=== PATIENT | male | born 1975 | race Caucasian/White ===

== ENCOUNTER 2023-04-24 06:14 | Day surgery (SDC) | payer OTHER, SELFPAY ==
[2023-04-11 11:57] VITALS: BMI 40.7
[2023-04-24] VITALS (26 sets, daily range): BP systolic 143–218; BP diastolic 70–121; PULSE 79–102; RESP 9–24; TEMP 36.3–36.9; O2SAT 92–100; BMI 40.7
[2023-04-24] MEDS: VANCOMYCIN 1,000 MG/200 ML PIGGYBACK 200 MG IV (06:50)
[2023-04-24] MEDS: PREGABALIN 75 MG CAPSULE PO ×2 (07:00→07:08)
[2023-04-24] MEDS: CELECOXIB 200 MG CAPSULE PO (07:09)
--- NOTE | 2023-04-24 07:42 | PM.PREOP ---
Pre-operative Note Interval Note History & Physical reviewed/Exam performed by Physician: Yes Changes to H&P: No
--- NOTE | 2023-04-24 07:42 | PM.OP.1 ---
Operative Date/Time/Diagnoses Date of procedure: 04/24/23 Time of procedure: 07:40 Pre-op diagnosis: Severe right hip OA Post-op diagnosis: same Procedure & Clinicians Procedure: Right total hip arthroplasty posterior approach Same procedure as scheduled: Yes Indications: The patient has had progressively worsening right hip pain with radiographic changes consistent with arthritis. Non-operative management has failed and the patient has requested total hip replacement. The risks, benefits and alternatives to surgery were discussed with the patient prior to proceeding. Risks discussed included, but were not limited to, failure to relieve pain, leg length discrepancy, dislocation, stiffness, infection, nerve damage, deep venous thrombosis, pulmonary embolism, stroke, coma, heart attack, permanent paralysis and , as well as the potential need for eventual revision of the prosthetic. Surgeon: Leia De La Rosa Telemarketing Representative: Hamida Gilbert Anesthesia Type: General and Spinal Operative Notes Findings: Severe right hip osteoarthritis Closure Type: primary Specimen(s): none sent Prosthetic devices, grafts, tissues, transplants, or devices: De La Rosa and nephew anthology a size 8. 54 mm R3 cup, neutral poly liner,-3 x 36 Oxinium head,one 6.5 mm screw Estimated Blood Loss (mL): 250 Blood products transfused: none Procedure in detail: The patient was seen in the pre-operative area, where the patient identified the right hip as the operative site and this was marked with my initials. The patient received pre-operative antibiotics and was taken to the operating room and placed on the operative table in the left lateral decubitus position after satisfactory anesthesia. A content specialist out was performed. The right leg was prepared from the ankle to the iliac crest with ChloroPrep in the usual fashion and draped through sterile drapes. The hip was approached through an approximately 20 cm incision centered over the greater trochanter and curving gently posteriorly as it went proximally. This was carried sharply to the fascia sandra, which was divided and retracted with a self retaining retractor. The trochanteric bursa was excised with care being taken to avoid the sciatic nerve, which was identified and protected throughout the case. The short external rotators were incised and the capsulomuscular flap was raised and tagged for later repair. The hip was dislocated, and a femoral neck osteotomy performed approximately 15 mm above the lesser trochanter. Retractors were placed around the femur. The canal was opened with a box cutting osteotome, followed by a T handled reamer and a lateralizing reamer. The chili pepper broach was then used, followed by sequential broaching until there was good stability of the broach in the femur. Retractors were placed to expose the acetabulum. The labrum and central soft tissues were removed. Reaming was performed initially going up in 2 mm increments, then 1 mm increments until good bite was obtained with an odd sized reamer. The cup 1 mm larger than the last reamer was then inserted using the appropriate anteversion guides. It was further stabilized with a single screw. A trial neutral liner was placed. The broach was placed in the canal. A trial head and neck were then placed and the hip relocated and checked for leg length and stability. He had a very tight hip overall. We meticulously mobilized his femur in order to allow adequate positioning of the cup and femoral component. A PA was essential throughout the procedure for intraoperative positioning of the patient leg, hemostasis, and adequate retraction. An intraoperative film confirmed the component position and no evidence of fracture. The patient was stable in the position of sleep, of squatting, and could be put through a range of motion with 45 degrees internal rotation without dislocation. At 90 degrees flexion, internal rotation to 70 was possible before dislocation. This was felt to be satisfactory and the appropriate components were opened, and the trials were removed. The acetabular liner was impacted into position. The final stem was then impacted into the prepared femoral canal. A brief Betadine soak was performed while trialing with head options. The hip was meticulously irrigated with normal saline. Finally the femoral head was impacted onto the stem. The acetabulum was cleared of all material and the hip relocated one final time. The capsulomuscular flap was then repaired to the greater trochanter though an awl hole using the tag sutures. The short external rotators were repaired with a nonabsorbable suture. A deep drain was placed and brought out anteriorly. The fascia sandra was closed with Vicryl. The subcutaneous layer was closed with barbed sutures and SteriStrips. An Aquacel Ag dressing was applied and the patient was taken to recovery having tolerated the procedure well. Complications: none Post-operative Condition: stable Disposition: Acute Care Plan for aftercare: The patient will be maintained on a standard total hip replacement protocol with weight bearing as tolerated and posterior hip precautions. The patient will receive Aspirin and sequential compression devices for DVT prophylaxis. The patient will be discharged home when safe for the home environment.
--- NOTE | 2023-04-24 08:00 | DI.RAD.S_ITS ---
PROCEDURE: XR PELVIS 1-2V INDICATIONS: INNER OP TECHNIQUE: 1 view of the lower pelvis acquired. COMPARISON: [facility], CR, XR HIP W PEL IF DONE RT 2V, 04/24/2023, 11:15. FINDINGS AND IMPRESSION: Surgical changes of right hip arthroplasty. No unexpected findings. Please see operative note for full details. Dictated by: Long Carbajal M.D. on 04/24/2023 at 14:57 Approved by: Long Carbajal M.D. on 04/24/2023 at 14:58
[2023-04-24] MEDS: CEFAZOLIN 2 GM/100 ML PREMIX 100 ML IV (08:12)
[2023-04-24] MEDS: TRANEXAMIC ACID 1,000 MG VIAL 2000 MG INJ ×2 (08:15→10:28)
--- NOTE | 2023-04-24 08:44 | SUR.OPER ---
Lateral supported by hip clinical nurse specialist system, head on pillow, gel axillary roll in place, bottom leg bent with gel pad under knee to foot and secured with tape. Upper arm supported by pillows and secured over bottom arm to padded arm board. Additional gelpad padding groin
[2023-04-24] MEDS: BUPIVACAINE 0.25% (PF) 60 ML, EPINEPHrine 0.3 MG INJ (08:49)
[2023-04-24] MEDS: BUPIVACAINE LIPOSOME 266 MG/20 ML VIAL INJ (08:51)
[2023-04-24] MEDS: EPINEPHrine 1 MG/ML TOP (08:53)
[2023-04-24] MEDS: LACTATED RINGERS 1,000 ML 42 ML IV ×2 (09:00→10:02)
--- NOTE | 2023-04-24 11:00 | DI.RAD.S_ITS ---
PROCEDURE: XR HIP W PEL IF DONE RT 2V INDICATIONS: POST OP TOTAL HIP TECHNIQUE: AP pelvis and lateral view of the right hip acquired. COMPARISON: [facility], CR, XR PELVIS WITH LATERAL HIP RIGHT, 02/07/2023, 8:56. [facility], CR, XR PELVIS 1-2V, 04/24/2023, 9:30. FINDINGS: Bones: Patient is status post right hip arthroplasty, with hardware components in expected positions. The hip joint appears congruent. The visualized bony structures appear intact. Soft tissues: Overlying postoperative changes are noted. No suspicious soft tissue densities. IMPRESSION: Postoperative changes from right hip arthroplasty. No definite unexpected findings. Dictated by: Romario Miguel M.D. on 04/24/2023 at 13:03 Approved by: Romario Miguel M.D. on 04/24/2023 at 13:06
[2023-04-24] MEDS: LABETALOL 20 MG/4 ML SYRINGE 10 MG IV (11:56)
[2023-04-24] MEDS: ACETAMINOPHEN 325 MG TABLET 650 MG PO (13:09)
[2023-04-24] MEDS: IBUPROFEN 400 MG TABLET PO (13:09)
[2023-04-24] MEDS: LACTATED RINGERS 1,000 ML 100 ML IV (13:10)
[2023-04-24] MEDS: OXYCODONE IR 10 MG TABLET PO (13:14)
--- NOTE | 2023-04-24 16:00 | OT.IP.TRT ---
Current Diagnoses Unilateral primary osteoarthritis, right hip (04/24/23) Surgery Performed Operation Date: 04/24/23 07:45 Actual Procedures p Total Hip Arthroplasty(Right) - Leia De La Rosa MD Occupational Therapy Treatment Note M2 OT-IP Current Condition Start: 04/24/23 16:00 Freq: Status: Active Protocol: Document 04/24/23 16:00 [facility] (Rec: 04/24/23 16:27 [facility] [id number]) Occupational Therapy Current Condition Current Condition Treatment Diagnosis R SONIA Diagnosis Onset Date 04/24/23 Post Operative Precautions Posterior Hip Precautions No Hip Flexion > 90 degrees,No Hip Internal Rotation,No Hip Adduction Weight Bearing Status Weight Bearing Status Weight Bear as Tolerated M3 OT- IP Subjective and Pain Start: 04/24/23 16:00 Freq: Status: Active Protocol: Document 04/24/23 16:00 [facility] (Rec: 04/24/23 16:27 [facility] [id number]) OT- Subjective Occupational Therapy Visit Type Type Treatment Note Visit Start Time 15:26 Visit Stop Time 16:00 Total Visit Minutes 34 Occupational Therapy Visit Comments Patient Comments Pt agreed to get up and wanting to go home. Pt's present for Ot treatment . Patient/Caregiver Goals To go home. OT Pain Assessment Pain When Pain Assessed At Rest Pain Present Pain Present Pain Reported Location Right Hip Intensity 1 Scale Used Numeric (0 - 10) M4 OT- IP ADL's Start: 04/24/23 16:00 Freq: Status: Active Protocol: Document 04/24/23 16:00 [facility] (Rec: 04/24/23 16:27 [facility] [id number]) OT [id number] Comments OT Self-Feeding Comments Not at meal time, no issued anticipated. OT ADL-Grooming Comments OT Grooming Comments Not performed. OT ADL-Oral Care Comments Oral Care Comments Not performed. OT ADL-Dressing General Eval Lower Body Dressing Ability Maximum Assistance Areas Needing Assistance Pants/Shorts,Socks,Shoes Comments OT Dressing Comments Pt's able to assist pt for all LB dressing needs and will be doing so at home. OT ADL-Toileting Comments OT Toileting Comments Pt already able to use the urinal. Educated to be careful while wiping and that standing up would be better at this time in order to follow his hip precautions. Pt states his to asisst and also suggested wet wipe can be helpful or just to shower off. OT ADL-Bathing Comments OT Bathing Comments Spoke of possible tub bench versus shower chairs pending how pt does and moves. Otherwise pt can just sponge off for now until he is able to do the steps at home. Once again, pt's states to be assist the pt. M5 OT- IP IADL's Start: 04/24/23 16:00 Freq: Status: Active Protocol: Document 04/24/23 16:00 [facility] (Rec: 04/24/23 16:27 [facility] [id number]) OT-Instrumental Activities of Daily Living Deficits IADL Deficits Identified Deficits Home Safety Awareness Awareness of Need for Assistance at Home Good Awareness Ability to Problem Solve Emergency Able to Problem Solve Situations M6 OT- IP Functional Cognition Start: 04/24/23 16:00 Freq: Status: Active Protocol: Document 04/24/23 16:00 [facility] (Rec: 04/24/23 16:27 [facility] [id number]) Cognitive Factors Limiting Selfcare Function Cognitive Ability Level of Alertness Alert Patient Orientation Name,Place,Situation Attention Span Ability Capable of Focused Attention, Capable of Sustained Attention Ability to Follow Commands Able to Follow One Step Commands Cognitive Comments Cognitive Assessment Comments Pt able to follow commands for his hip precautions for ADl and mobility needs after initial education. M7 OT- IP Mobility and Balance Start: 04/24/23 16:00 Freq: Status: Active Protocol: Document 04/24/23 16:00 [facility] (Rec: 04/24/23 16:27 [facility] [id number]) OT- Bed Mobility Assessment Supine to Sit Supine to Sit Assist Standby Assistance OT-Transfer Assessment Sit to and From Stand Sit to and from Stand Standby Assistance Comments Mobility Comments Pt able to get out of bed with SBA and stand to the FWW with SBA. Initially supine 174/99 , sitting 173/101 and 177/103 after standing 181/115 and feeling sweaty. Pt's nurse came in to recheck pt's BP on the left arm and 166/98. Educated pt to push up from surfaces sitting on and to slide his RLE forwards prior to standing and sitting to ensure not to bend greater than 90 degrees. OT- Balance Assessment Sitting Balance and Reactions Static Sitting Balance Ability Normal Dynamic Sitting Balance Ability Good Standing Balance and Reactions Static Standing Balance Ability Good M9 OT- IP Assessment and Plan Start: 05/24/23 16:00 Freq: Status: Active Protocol: Document 04/24/23 16:00 [facility] (Rec: 04/24/23 16:27 [facility] [id number]) OT Summary Assessment and Plan Potential Rehabilitation Potential Good Analytic Complexity at Evaluation Low Summary OT Impairments Pain,Balance,Functional Mobility,Dressing,Toileting, Bathing,Toilet Transfers, Shower Transfers Progress Towards Goals Progressing Toward Goals Assessment Summary Pt just seen for OT treatment and able to talk about OT needs of equipment, techniques for dressing, toileting and bathing needs. Pt has very supportive and kids that will assist pt for all his needs and therefore not wanting to get any LB dressing equipment. Pt's was able to order a FWW for the pt as he has a borrowed standard FWW now. Discharge Recommendations OT Discharge Recommendations Home with Assistance Home Equipment Needs FWW, shower chair? Transportation Needs at Discharge Private Vehicle
--- NOTE | 2023-04-24 16:43 | PT.IIE ---
Current Diagnoses Unilateral primary osteoarthritis, right hip (04/24/23) Surgery Performed Operation Date: 04/24/23 07:45 Actual Procedures p Total Hip Arthroplasty(Right) - Leia De La Rosa MD Surgical History (Last Updated 04/11/23 @ 13:10 by Kiah Cantrell, RN) History of cardiac cath (12/26/22) Hx of bariatric surgery (2019) Hx of tonsillectomy Medical History (Last Updated 04/11/23 @ 13:07 by Kiah Cantrell RN) Heart failure History of COVID-19 (10/2022) HTN (hypertension) Osteoarthritis Physical Therapy Inpatient Evaluation/Re-Eval M1 PT/OT-IP Prior Functional Status Start: 04/24/23 14:10 Freq: NEEDED Status: Active Protocol: Document 04/24/23 16:20 [facility] (Rec: 04/24/23 16:22 ES [id number]) Medical Review Prior Functional Status Medical History Reviewed Yes Diet/Fluid Consistency Regular Communication Indep Mobility and Gait Indep without AD Activities of Daily Living and IADL's Indep Social History Household Members spouse,children Living Arrangements House Number of Floors (Floors) Two Floors Number of Stairs To Enter/Railing? 2 steps onto porch with single concrete ledge on R side ascending. 12 steps up to second level with single rail and ledge on other side. Home Environment Standard Height Toilet,Tub/ Shower Employment Status Occasional Caregiver Employed Additional Social History Comment Patient has a walker without wheels; purchased a FWW during session to be delivered on Saturday. Will have 5 kids of various ages around to help with household tasks. M2 PT-IP Current Condition Start: 04/24/23 14:10 Freq: NEEDED Status: Active Protocol: Document 04/24/23 16:20 ES (Rec: 04/24/23 16:41 ES [id number]) Physical Therapy Current Condition Current Condition Evaluation Date 04/24/23 Treatment Diagnosis S/p R SONIA Onset Date 04/24/23 M3 PT-IP Subjective Start: 04/24/23 14:10 Freq: NEEDED Status: Active Protocol: Document 04/24/23 16:20 [facility] (Rec: 04/24/23 16:41 ES [id number]) Subjective Physical Therapy Visit Type Type Initial Evaluation Visit Start Time 15:26 Visit Stop Time 16:14 Total Visit Minutes 48 Notes OT present Physical Therapy Visit Comments Patient Comments Patient alert in bed, anxious to work with PT and get home as soon as possible. present. Patient reported he hasn't taken his usual BP meds today because of having surgery. Has a BP cuff at home , usually is in the 140's/80/s . Patient Goals To go home DWIGHT. Therapy Pain Assessment Pain When Pain Assessed During Mobility Pain Present Pain Present Pain Reported Location Right Hip Intensity 1 Scale Used Numeric (0 - 10) M4 PT-IP Mobility and Gait Start: 04/24/23 14:10 Freq: NEEDED Status: Active Protocol: Document 04/24/23 16:20 ES (Rec: 04/24/23 16:41 ES [id number]) PT-Bed Mobility Assessment Supine to Sit Supine to Sit Standby Assistance Sit to Supine Sit to Supine Independent Scooting Scooting to Edge of Bed Independent Scooting Up and Down in Bed Independent PT-Transfer Assessment Sit to and From Stand Sit to and from Stand Independent,Use of Upper Extremities Equipment Transfer Assistive Device Front Wheeled Walker Orthotic/Prosthetic Devices or Brace: No Transfers Transfer Destination Bed Transfer Technique Ambulation Transfer Ability Level of Assist Standby Assistance,Use of Upper Extremities Comments Mobility Comments BP was monitored throughout visit; see vital sign flowsheet in chart for details . Instructed patient to place R foot forward during STS to comply with precautions. Cued for hand placement for safety. Gait Assessment Gait Gait Assistance Required: Independent Distance (Feet) 100 Able to Maintain Weight Bearing Status Yes During Gait Assistive Devices Assistive Device Gait Belt,Front Wheeled Walker Orthotic/Prosthetic Devices or Brace: No Gait Deviations General Gait Pattern Antalgic,Step-to Gait Factors Limiting Gait Function Factors Limiting Gait Function Decreased Strength,Pain Comments Gait Comments Education on progression to step-through as able at home. Instructed patient to push vs lift FWW. Stair Climbing Assessment Evaluation Level of Assist On Stairs Standby Assistance Devices Stair Climbing Assistive Devices Left Railing Technique/Endurance Stair Climbing Direction Ascend and Descend Stair Climbing Technique Step to Step Number of Steps Climbed 3 Query Text: Stair Climbing Set # Repetitions (reps) 1 Comments Stair Climbing Comments Patient used preferred method of ascending and descending facing up the stairs. No cues needed for sequencing. Instructed in HAND BRAILLE TRANSCRIBER technique to use as needed since they have a single rail. PT-Balance Assessment Sitting Balance and Reactions Static Sitting Balance Ability Good Dynamic Sitting Balance Ability Good Standing Balance and Reactions Static Standing Balance Ability Good Dynamic Standing Balance Ability Good Device Used FWW M5 PT-IP Objective Assessments Start: 04/24/23 14:10 Freq: NEEDED Status: Active Protocol: Document 04/24/23 16:20 ES (Rec: 04/24/23 16:41 ES [id number]) Orientation Orientation/Cognition Level of Alertness Alert Orientation Name,Age,Birthday,Month,Date, Year,Day of Week,Place, Situation Language Function Ability No Deficits Noted Safety Awareness Understands Safety Issues Memory Description No Deficits Noted Gross Range of Motion Upper Extremity ROM Assessment Within Functional Limits Lower Extremity ROM Assessment Right Impaired Impairments 2/2 precautions Strength Upper Extremity Strength Assessment Within Functional Limits Lower Extremity Strength Assessment Right Impaired Comments Strength Comments RLE relatively weak 2/2 surgery. Coordination Assessment Gross Coordination Gross Coordination WNL Sensation Assessment Sensation Gross Sensation WNL M6 PT-IP Treatment Start: 04/24/23 14:10 Freq: NEEDED Status: Active Protocol: Document 04/24/23 16:20 ES (Rec: 04/24/23 16:41 ES [id number]) Physical Therapy Treatment Exercises Exercises Ankle Pumps,Gluteal Sets,Quad Sets,Heel Slides,Supine Hip Abduction Education Education Provided Precautions,Weight Bearing Status,Post-Op Packet,Safety M7 PT-IP Assessment and Plan Start: 04/24/23 14:10 Freq: NEEDED Status: Active Protocol: Document 04/24/23 16:20 ES (Rec: 04/24/23 16:41 ES [id number]) PT Summary Assessment and Plan Potential Rehabilitation Potential Excellent Status of Condition at Evaluation Unstable Summary Assessment Summary Patient is a 47 year old male who presents POD #0 s/p R SONIA with posterior approach. Patient demonstrated ability to perform all mobility tasks without physical assistance, at independent/SBA level using FWW. He demonstrated good compliance with hip precautions, and was able to perform HEP ex's with minimal cueing. His BP was high throughout visit (170-180's/90 -100's) which at this point is the only concern for d/c from PT perspective. PT notified nursing and requested nurse contact surgeon/PA for clearance to d/c. Otherwise, patient is appropriate to d/c home with family assistance and no further skilled PT is indicated at this time. Frequency of Treatment Frequency Of Treatment Discharge Precautions Posterior Hip Precautions No Hip Flexion > 90 degrees,No Hip Internal Rotation,No Hip Adduction Weight Bearing Status Weight Bearing Status Weight Bear as Tolerated Recommendations To Nursing Amount of Assist Needed Standby Assistance Discharge Recommendations PT Discharge Recommendations Home with Assistance Transportation Needs at Discharge Private Vehicle
== END 2023-04-24 18:40 | disposition home or self-care (01) ==
LOC: OR 06:16 → AC 06:17
PROVIDERS: PCP Registered Nurse; Referring Provider Orthopaedic Surgery; Visit Provider Orthopaedic Surgery
PROC: 0SR90JZ Replacement of Right Hip Joint with Synthetic Substitute, Open Approach (ICD-10-PCS; CPT 27130; principal; 2023-04-24 07:45)
DX: M16.11 Unilateral primary osteoarthritis, right hip (principal); G47.30 Sleep apnea, unspecified; I10 Essential (primary) hypertension; E66.9 Obesity, unspecified; Z68.36 Body mass index [BMI] 36.0-36.9, adult
CPT/HCPCS: 27130; 72170; 73502; 97161; 97530; 97535; C1776; C9290; J0171; J0690; J1170; J2250; J2704; J3010